=== PATIENT | male | born 1945 | race Caucasian/White ===

== ENCOUNTER 2020-10-20 12:10 | Day surgery (SDC) | payer MEDICARE, MEDICAID ==
[~2020-10-20] VITALS: Ht 190.5 cm; Wt 131.9 kg
[2020-10-20] VITALS (9 sets, daily range): BP systolic 124–213; BP diastolic 62–180
[2020-10-20] MEDS ORDERED: midazolam 1 mg/ML 2ml injection ONE (13:36)
[2020-10-20] MEDS ORDERED: fentaNYL/PF 50MCG/1 ML 2ML syringe ONE (13:36)
[2020-10-20] MEDS ORDERED: heparin 1,000unit/ml 10ml vial 10 ML ONE (13:36)
[2020-10-20] MEDS ORDERED: nitroGLYCERIN-Tridil 50MG/D5W 250 ML IV ONE (13:36)
[2020-10-20] MEDS ORDERED: iohexol 350MG/ML 100ml bottle IV ONE (13:36)
[2020-10-20] MEDS ORDERED: LIDOcaine 1% (10mg/ml)w/preservative injection 20ml MDV ONE (13:36)
[2020-10-20] MEDS ORDERED: verapamil 2.5 mg/ml inj IV ONE (13:36)
[2020-10-20] MEDS ORDERED: DULO-31 PO ×2 (13:49)
[2020-10-20] MEDS ORDERED: MORP15TA PO (13:49)
[2020-10-20] MEDS ORDERED: CARV-49 PO (13:50)
[2020-10-20] MEDS ORDERED: AMLO10TA48 PO (13:50)
[2020-10-20] MEDS ORDERED: OMEP40CA21 PO (13:52)
[2020-10-20] MEDS ORDERED: LYR75C PO (13:52)
[2020-10-20] MEDS ORDERED: MELO-102 PO (13:52)
[2020-10-20] MEDS ORDERED: LISI40TA13 PO (13:52)
[2020-10-20 13:59] LABS: BASOPHILS # (AUTO) 0.1 X10'3 (0-0.2); BASOPHILS % (AUTO) 0.9 % (0-1); EOSINOPHILS # (AUTO) 0.3 X10'3 (0-0.9); EOSINOPHILS % (AUTO) 2.8 % (0-6); HEMATOCRIT 44.5 % (42.0-52.0); HEMOGLOBIN 14.9 g/dl (14.0-17.9); LYMPHOCYTES # (AUTO) 1.9 X10'3 (1.1-4.8); LYMPHOCYTES % (AUTO) 21.2 % (21-51); MEAN CORPUSCULAR HEMOGLOBIN 31.5 PG (27.0-31.0); MEAN CORPUSCULAR HGB CONC 33.5 g/dL (33.0-36.5); MEAN PLATELET VOLUME 8.1 FL (7.4-10.4); MONOCYTES # (AUTO) 0.8 X10'3 (0-0.9); MONOCYTES % (AUTO) 8.7 % (2-12); NEUTROPHILS % (AUTO) 66.4 % (42-75); PLATELET COUNT 231 X10'3 (140-440); RED BLOOD COUNT 4.73 X10'6 (4.70-6.10); RED CELL DISTRIBUTION WIDTH 13.7 % (11.5-14.5)
[2020-10-20 14:07] LABS: ALBUMIN 3.8 G/DL (3.4-5.0); ANION GAP 9 (8-16); BLOOD UREA NITROGEN 22 MG/DL (7-18); BUN/CREATININE RATIO 22.2 (5.4-32.0); CALCIUM 8.8 MG/DL (8.5-10.1); CHLORIDE 105 MMOL/L (99-107); CREATININE 0.99 MG/DL (0.60-1.10); GLUCOSE 117 MG/DL (70-104); POTASSIUM 3.7 MMOL/L (3.5-5.1); SODIUM 142 MMOL/L (135-145); TOTAL CARBON DIOXIDE 27.9 MMOL/L (24-32); eGFR 74 ML/MIN
[2020-10-20] MEDS ORDERED: morphine 2 MG/ML inj. syringe ONE (14:09)
[2020-10-20 14:14] LABS: PARTIAL THROMBOPLASTIN TIME 28 SECONDS (22-32)
[2020-10-20] MEDS ORDERED: furosemide 40mg/4ml inj ONE (14:26)
[2020-10-20] MEDS ORDERED: ondansetron/PF 4mg/2ml inj IV PRN (14:50)
[2020-10-20] MEDS ORDERED: nitroGLYCERIN 0.4mg SUBLingual tab SL PRN (14:50)
[2020-10-20] MEDS ORDERED: OXAZEpam 15mg capsule PO PRN (14:50)
[2020-10-20] MEDS ORDERED: proCHLORperazine 10 MG/2 ml inj IV PRN (14:50)
[2020-10-20] MEDS ORDERED: potassium Cl 20 mEq SR tablet PO ONE (14:50)
== END 2020-10-20 17:00 | disposition home or self-care (01) ==
LOC: SSTAY O 12:10
PROVIDERS: ATTEND Internal Medicine Interventional Cardiology
DX: R94.39 Abnormal result of other cardiovascular function study (principal); I25.10 Atherosclerotic heart disease of native coronary artery without angina pectoris; G47.33 Obstructive sleep apnea (adult) (pediatric); I10 Essential (primary) hypertension; I47.1 Supraventricular tachycardia; F32.9 Major depressive disorder, single episode, unspecified; I48.91 Unspecified atrial fibrillation; Z88.0 Allergy status to penicillin; Z88.8 Allergy status to other drugs, medicaments and biological substances; Z79.899 Other long term (current) drug therapy; Z98.890 Other specified postprocedural states; Z85.828 Personal history of other malignant neoplasm of skin; Z72.89 Other problems related to lifestyle; Z82.3 Family history of stroke; Z82.49 Family history of ischemic heart disease and other diseases of the circulatory system; Z80.8 Family history of malignant neoplasm of other organs or systems
CPT/HCPCS: 36415; 80048; 85025; 85610; 85730; 93458; 99152; 99153; C1769; C1894; J1644; J1940; J2001; J2250; J2270; J3010; Q9967; A4620; A5120; J3490